=== PATIENT | male | born 1945 | race Caucasian/White ===

== ENCOUNTER 2018-05-22 18:58 | Inpatient (IN) ==
[2018-05-22 20:00] LABS: Basophils % 0.4 % (0.0-0.8); Eosinophils # 0.4 10*3/uL (0.0-0.87); Hematocrit 20.9 VOL% (42.0-52.0); Hemoglobin 6.5 GM/DL (14.0-18.0); Immature Granulocytes % 0.5 %; Immature Granulocytes Absolute 0.04 #; Mean Corpuscular HGB Conc 31.1 GM/DL (32-36); Mean Corpuscular Hemoglobin 29 PG (27-34); Mean Corpuscular Volume 92.5 FL (87-102); Mean Platelet Volume 10.5 FL (9.6-12.0); Monocytes # 0.6 10*3/uL (0.11-0.8); Monocytes % 8.3 % (1.7-12.7); Neutrophils # 5.2 10*3/uL (1.4-7.4); Neutrophils % 70.8 % (38.7-73.9); Platelet Count 277 T/CUMM (130-400); Red Blood Count 2.26 MC/CUMM (3.8-5.5); Red Cell Distribution Width 13.8 % (9.3-17.3); White Blood Count 7.4 T/CUMM (4-12)
[2018-05-22 20:30] LABS: Apearance,Urine CLEAR (Clear); Bilirubin,Urine Negative (Negative); Blood, Urine Negative (Negative); Glucose,Urine (UA) 50 mg/dL (Negative); Ketones,Urine Negative (Negative); Mucus,Urine Occasional /LPF (Occasional); Nitrite,Urine Negative (Negative); Protein,Urine 100 MG/DL; RBC,Urine <1 /HPF (0-4); Urine Color Straw (Yellow); Urine Urobilinogen < 2.0 EU/DL (0.2-1.0); WBC,Urine <1 /HPF (0-6)
[2018-05-22 21:18] LABS: Alanine Aminotransferase 31 U/L (16-61); Albumin 2.5 G/DL (3.4-5.0); Alkaline Phosphatase 89 U/L (45-117); Aspartate Amino Transferase 38 U/L (0-37); Bilirubin,Total < 0.39 MG/DL (0.2-1.0); Blood Urea Nitrogen 52 MG/DL (7-18); Calcium 7.8 MG/DL (8.5-10.1); Glucose 138 MG/DL (74-106); Osmolality,Calculated 292.5 MOS/KG (273-304); Potassium 4.1 MMOL/L (3.5-5.1); Sodium 139 MMOL/L (136-145); Total Protein 7.6 G/DL (6.4-8.3)
[2018-05-22] MEDS ORDERED: hydrALAZINE 20 MG/1 ML VIAL IV STA (23:24)
[2018-05-23] MEDS ORDERED: GLUCAGON 1 MG VIAL IM PRN (01:38)
[2018-05-23] MEDS ORDERED: SODIUM CHLORIDE 0.9% 1,000 ML IV SCH (01:38)
[2018-05-23] MEDS ORDERED: ACETAMINOPHEN 325 MG/10.15 ML UDCUP PO PRN (01:38)
[2018-05-23] MEDS ORDERED: DEXTROSE 50% 25 GM/50 ML VIAL IV PRN (01:38)
[2018-05-23] MEDS ORDERED: SODIUM CHLORIDE 0.9% 1,000 ML IV PRN ×4 (01:38→09:03)
[2018-05-23] MEDS: PANTOPRAZOLE 40 MG VIAL IV SCH ×3 (01:59→21:09)
[2018-05-23 02:05] LABS: % Iron Saturation 5.6 % (18-50); Ferritin 10.9 ng/ml (26-388)
[2018-05-23] MEDS: INSULIN LISPRO 100 UNIT/ML SUBCUT SCH ×7 (02:55→23:51)
[2018-05-23 03:18] LABS: Basophils % 0.3 % (0.0-0.8); Eosinophils # 0.6 10*3/uL (0.0-0.87); Eosinophils % 6.3 % (0.00-10.9); Hematocrit 21.1 VOL% (42.0-52.0); Hemoglobin 6.5 GM/DL (14.0-18.0); Immature Granulocytes % 0.4 %; Immature Granulocytes Absolute 0.04 #; Lymphocytes # 1.6 10*3/uL (1.4-4.0); Lymphocytes % 17.2 % (21.2-54.2); Mean Corpuscular HGB Conc 30.8 GM/DL (32-36); Mean Corpuscular Hemoglobin 29 PG (27-34); Mean Corpuscular Volume 92.5 FL (87-102); Mean Platelet Volume 11.1 FL (9.6-12.0); Monocytes # 0.9 10*3/uL (0.11-0.8); Monocytes % 10.2 % (1.7-12.7); Neutrophils % 65.6 % (38.7-73.9); Platelet Count 297 T/CUMM (130-400); Red Blood Count 2.28 MC/CUMM (3.8-5.5); Red Cell Distribution Width 13.6 % (9.3-17.3); White Blood Count 9.2 T/CUMM (4-12)
[2018-05-23 03:21] LABS: Calcium 7.9 MG/DL (8.5-10.1); Osmolality,Calculated 294.5 MOS/KG (273-304); Potassium 3.8 MMOL/L (3.5-5.1); Risk Ratio 3.71; VLDL CHOLESTEROL 35.4 MG/DL
[2018-05-23 03:49] LABS: INR 1.1; PT Patient Result 11.8 SECS; Partial Thromboplastin Time 25.9 SECS (0-40)
[2018-05-23] MEDS: ACETAMINOPHEN 500 MG TABLET PO PRN ×2 (06:13→18:12)
[2018-05-23 08:18] LABS: Hematocrit 20.6 VOL% (42.0-52.0)
[2018-05-23 08:20] LABS: Hemoglobin 6.4 GM/DL (14.0-18.0)
[2018-05-23] MEDS ORDERED: FUROSEMIDE 40 MG/4 ML VIAL IV ONE (08:29)
[2018-05-23 09:18] LABS: Basophils % 0.3 % (0.0-0.8); Eosinophils # 0.5 10*3/uL (0.0-0.87); Eosinophils % 6.7 % (0.00-10.9); Hematocrit 20.6 VOL% (42.0-52.0); Immature Granulocytes % 0.3 %; Immature Granulocytes Absolute 0.02 #; Lymphocytes # 0.9 10*3/uL (1.4-4.0); Lymphocytes % 13.8 % (21.2-54.2); Mean Corpuscular HGB Conc 31.1 GM/DL (32-36); Mean Corpuscular Hemoglobin 28 PG (27-34); Mean Platelet Volume 10.4 FL (9.6-12.0); Monocytes # 0.6 10*3/uL (0.11-0.8); Monocytes % 8.5 % (1.7-12.7); Neutrophils # 4.7 10*3/uL (1.4-7.4); Neutrophils % 70.4 % (38.7-73.9); Platelet Count 241 T/CUMM (130-400); Red Blood Count 2.29 MC/CUMM (3.8-5.5); Red Cell Distribution Width 17.3 % (9.3-17.3); White Blood Count 6.7 T/CUMM (4-12)
[2018-05-23 09:44] LABS: Hemoglobin 6.4 GM/DL (14.0-18.0)
[2018-05-23 09:56] LABS: Folate 15.5 NG/ML (5.4-24.0); Vitamin B12 766 PG/ML (211-911)
[2018-05-23 09:58] LABS: Hypochromasia 2+; Microcytosis Slight; Platelet Estimate Adequate
[2018-05-23 10:33] LABS: Sedimentation Rate-Westergren 115 MM/HR (0-20)
[2018-05-23] MEDS: hydrALAZINE 25 MG TABLET PO PRN (14:04)
[2018-05-23] MEDS: FUROSEMIDE 20 MG TABLET PO SCH (15:38)
[2018-05-23] MEDS: GLIMEPIRIDE 4 MG TABLET PO SCH (18:13)
[2018-05-23 19:10] LABS: Hematocrit 31.1 VOL% (42.0-52.0)
[2018-05-23 19:12] LABS: Hemoglobin 9.9 GM/DL (14.0-18.0)
[2018-05-23 19:51] LABS: Basophils # 0.1 10*3/uL (0.0-0.2); Basophils % 0.7 % (0.0-0.8); Eosinophils # 0.5 10*3/uL (0.0-0.87); Eosinophils % 6.1 % (0.00-10.9); Immature Granulocytes % 0.4 %; Immature Granulocytes Absolute 0.03 #; Lymphocytes # 0.9 10*3/uL (1.4-4.0); Mean Corpuscular HGB Conc 31.9 GM/DL (32-36); Mean Corpuscular Hemoglobin 27 PG (27-34); Mean Corpuscular Volume 83.6 FL (87-102); Mean Platelet Volume 10.7 FL (9.6-12.0); Monocytes # 0.6 10*3/uL (0.11-0.8); Monocytes % 8.3 % (1.7-12.7); Neutrophils # 5.5 10*3/uL (1.4-7.4); Neutrophils % 72.5 % (38.7-73.9); Platelet Count 307 T/CUMM (130-400); Red Blood Count 3.71 MC/CUMM (3.8-5.5); Red Cell Distribution Width 20.6 % (9.3-17.3); White Blood Count 7.6 T/CUMM (4-12)
[2018-05-23 19:55] LABS: Hemoglobin 9.9 GM/DL (14.0-18.0)
[2018-05-23] MEDS: ATORVASTATIN 40 MG TABLET PO SCH (21:10)
[2018-05-23] MEDS: METOPROLOL TARTRATE 50 MG TABLET PO SCH (21:10)
[2018-05-23] MEDS: LOSARTAN 50 MG TABLET PO SCH (21:10)
[2018-05-24 01:00] LABS: Basophils % 0.4 % (0.0-0.8); Eosinophils # 0.6 10*3/uL (0.0-0.87); Eosinophils % 7.5 % (0.00-10.9); Hematocrit 25.5 VOL% (42.0-52.0); Hemoglobin 8.1 GM/DL (14.0-18.0); Immature Granulocytes % 0.3 %; Immature Granulocytes Absolute 0.02 #; Lymphocytes # 1.1 10*3/uL (1.4-4.0); Lymphocytes % 15.4 % (21.2-54.2); Mean Corpuscular HGB Conc 31.8 GM/DL (32-36); Mean Corpuscular Hemoglobin 26 PG (27-34); Mean Corpuscular Volume 83.1 FL (87-102); Mean Platelet Volume 10.3 FL (9.6-12.0); Monocytes # 0.7 10*3/uL (0.11-0.8); Monocytes % 9.7 % (1.7-12.7); Neutrophils # 4.9 10*3/uL (1.4-7.4); Neutrophils % 66.7 % (38.7-73.9); Platelet Count 223 T/CUMM (130-400); Red Blood Count 3.07 MC/CUMM (3.8-5.5); Red Cell Distribution Width 20.8 % (9.3-17.3); White Blood Count 7.3 T/CUMM (4-12)
[2018-05-24 01:18] LABS: Calcium 7.7 MG/DL (8.5-10.1); Osmolality,Calculated 288.4 MOS/KG (273-304); Potassium 3.5 MMOL/L (3.5-5.1)
[2018-05-24] MEDS: INSULIN LISPRO 100 UNIT/ML SUBCUT SCH ×5 (02:03→17:13)
[2018-05-24 05:52] LABS: Hemoglobin 7.9 GM/DL (14.0-18.0)
[2018-05-24] MEDS: hydrALAZINE 25 MG TABLET PO PRN (07:02)
[2018-05-24] MEDS: LEVOTHYROXINE 75 MCG TABLET PO SCH (07:02)
[2018-05-24] MEDS ORDERED: MAGNESIUM SULF RIDER 4 GM in PREMIX 1 EACH IV ONE (07:20)
[2018-05-24] MEDS: GLIMEPIRIDE 4 MG TABLET PO SCH (08:20)
[2018-05-24] MEDS: FUROSEMIDE 20 MG TABLET PO SCH ×2 (08:20→17:13)
[2018-05-24] MEDS: METOPROLOL TARTRATE 50 MG TABLET PO SCH ×2 (08:21→20:50)
[2018-05-24] MEDS: LOSARTAN 50 MG TABLET PO SCH ×2 (08:21→20:50)
[2018-05-24] MEDS: PANTOPRAZOLE 40 MG VIAL IV SCH ×2 (08:22→20:50)
[2018-05-24 12:52] LABS: Hematocrit 27.4 VOL% (42.0-52.0); Hemoglobin 8.7 GM/DL (14.0-18.0)
[2018-05-24] MEDS: ATORVASTATIN 40 MG TABLET PO SCH (20:49)
[2018-05-25] MEDS: INSULIN LISPRO 100 UNIT/ML SUBCUT SCH ×4 (01:05→18:40)
[2018-05-25 06:15] LABS: Basophils % 0.4 % (0.0-0.8); Eosinophils # 0.6 10*3/uL (0.0-0.87); Eosinophils % 8.5 % (0.00-10.9); Hematocrit 25.8 VOL% (42.0-52.0); Hemoglobin 8.2 GM/DL (14.0-18.0); Immature Granulocytes % 0.3 %; Immature Granulocytes Absolute 0.02 #; Lymphocytes # 0.9 10*3/uL (1.4-4.0); Lymphocytes % 12.4 % (21.2-54.2); Mean Corpuscular HGB Conc 31.8 GM/DL (32-36); Mean Corpuscular Hemoglobin 27 PG (27-34); Mean Platelet Volume 10.6 FL (9.6-12.0); Monocytes # 0.8 10*3/uL (0.11-0.8); Monocytes % 11.7 % (1.7-12.7); Neutrophils # 4.8 10*3/uL (1.4-7.4); Neutrophils % 66.7 % (38.7-73.9); Platelet Count 246 T/CUMM (130-400); Red Blood Count 3.07 MC/CUMM (3.8-5.5); Red Cell Distribution Width 20.3 % (9.3-17.3); White Blood Count 7.2 T/CUMM (4-12)
[2018-05-25] MEDS: LEVOTHYROXINE 75 MCG TABLET PO SCH (06:16)
[2018-05-25 06:35] LABS: Albumin 2.3 G/DL (3.4-5.0); Bilirubin,Total 0.8 MG/DL (0.2-1.0); Osmolality,Calculated 282.5 MOS/KG (273-304); Potassium 3.4 MMOL/L (3.5-5.1); Total Protein 6.6 G/DL (6.4-8.3)
[2018-05-25] MEDS: PANTOPRAZOLE 40 MG VIAL IV SCH ×2 (08:22→21:16)
[2018-05-25] MEDS: FUROSEMIDE 20 MG TABLET PO SCH ×2 (08:43→15:56)
[2018-05-25] MEDS ORDERED: LIDOCAINE 2% 5 ML VIAL ONE (10:06)
[2018-05-25] MEDS ORDERED: ETOMIDATE 20 MG/10 ML VIAL IV ONE (10:06)
[2018-05-25] MEDS ORDERED: PROPOFOL 200 MG/20 ML VIAL IV ONE (10:06)
[2018-05-25] MEDS: hydroCHLOROthiazide 25 MG TABLET PO SCH (11:30)
[2018-05-25] MEDS: ACETAMINOPHEN 500 MG TABLET PO PRN (11:31)
[2018-05-25] MEDS: METOPROLOL TARTRATE 50 MG TABLET PO SCH ×2 (11:33→21:15)
[2018-05-25] MEDS: LOSARTAN 50 MG TABLET PO SCH ×2 (11:33→21:15)
[2018-05-25 12:10] LABS: Albumin (SPE) 3.1 G/DL (3.2-5.3); Albumin (SPE) Rel % 41.6 %; Alpha 1 (SPE) 0.2 G/DL (0.1-0.4); Total Protein (Chem) 7.5 G/DL (6.4-8.3)
[2018-05-25 12:11] LABS: Alpha 1 (SPE) Rel % 2.9 %; Alpha 2 (SPE) 1.4 G/DL (0.4-1.0); Alpha 2 (SPE) Rel % 18.6 %; Beta (SPE) Rel % 13.8 %; Gamma (SPE) 1.7 G/DL (0.7-1.7); Gamma (SPE) Rel % 23.1 %
[2018-05-25 12:14] LABS: Hemoglobin A1 (Alkaline) 97.6 % (96.5-98.5); Hemoglobin A2 (Alkaline) 2.4 % (1.5-3.5)
[2018-05-25] MEDS: POTASSIUM CHLORIDE 20 MEQ TABLET PO SCH ×3 (13:16→21:15)
[2018-05-25] MEDS ORDERED: diphenhydrAMINE CAP 25 MG CAPSULE PO ONE (14:47)
[2018-05-25] MEDS ORDERED: SODIUM CHLORIDE 0.9% 1,000 ML IV PRN (17:06)
[2018-05-25] MEDS: ATORVASTATIN 40 MG TABLET PO SCH (21:15)
[2018-05-26] MEDS: INSULIN LISPRO 100 UNIT/ML SUBCUT SCH ×2 (00:04→05:36)
[2018-05-26 05:14] LABS: Basophils % 0.1 % (0.0-0.8); Eosinophils # 0.6 10*3/uL (0.0-0.87); Eosinophils % 8.7 % (0.00-10.9); Hematocrit 29.3 VOL% (42.0-52.0); Hemoglobin 9.1 GM/DL (14.0-18.0); Immature Granulocytes % 0.4 %; Immature Granulocytes Absolute 0.03 #; Mean Corpuscular HGB Conc 31.1 GM/DL (32-36); Mean Corpuscular Hemoglobin 27 PG (27-34); Mean Corpuscular Volume 85.9 FL (87-102); Mean Platelet Volume 10.4 FL (9.6-12.0); Neutrophils # 4.2 10*3/uL (1.4-7.4); Neutrophils % 61.8 % (38.7-73.9); Platelet Count 210 T/CUMM (130-400); Red Blood Count 3.41 MC/CUMM (3.8-5.5); Red Cell Distribution Width 19.2 % (9.3-17.3); White Blood Count 6.8 T/CUMM (4-12)
[2018-05-26 05:28] LABS: Calcium 7.9 MG/DL (8.5-10.1); Osmolality,Calculated 285.5 MOS/KG (273-304); Potassium 4.3 MMOL/L (3.5-5.1)
[2018-05-26] MEDS: LEVOTHYROXINE 75 MCG TABLET PO SCH (05:49)
[2018-05-26 08:29] LABS: Red Blood Count 2.29 MC/CUMM (3.8-5.5); White Blood Count 6.7 T/CUMM (4-12)
[2018-05-26 08:30] LABS: Hematocrit 20.6 VOL% (42.0-52.0); Hemoglobin 6.4 GM/DL (14.0-18.0)
[2018-05-26 08:31] LABS: Basophils % 0.3 % (0.0-0.8); Eosinophils % 6.7 % (0.00-10.9); Immature Granulocytes % 0.3 %; Lymphocytes # 0.9 10*3/uL (1.4-4.0); Lymphocytes % 13.8 % (21.2-54.2); Mean Corpuscular HGB Conc 31.1 GM/DL (32-36); Mean Corpuscular Hemoglobin 28 PG (27-34); Mean Platelet Volume 10.4 FL (9.6-12.0); Monocytes % 8.5 % (1.7-12.7); Neutrophils # 4.7 10*3/uL (1.4-7.4); Neutrophils % 70.4 % (38.7-73.9); Platelet Count 241 T/CUMM (130-400); Red Cell Distribution Width 17.3 % (9.3-17.3)
[2018-05-26 08:32] LABS: Eosinophils # 0.5 10*3/uL (0.0-0.87); Hypochromasia 2+; Immature Granulocytes Absolute 0.02 #; Microcytosis Slight; Monocytes # 0.6 10*3/uL (0.11-0.8)
[2018-05-26 08:33] LABS: Platelet Estimate Adequate
[2018-05-26] MEDS: hydroCHLOROthiazide 25 MG TABLET PO SCH (09:14)
[2018-05-26] MEDS: FUROSEMIDE 20 MG TABLET PO SCH (09:14)
[2018-05-26] MEDS: LOSARTAN 50 MG TABLET PO SCH (09:14)
[2018-05-26] MEDS: PANTOPRAZOLE 40 MG VIAL IV SCH (09:15)
[2018-05-26] MEDS: METOPROLOL TARTRATE 50 MG TABLET PO SCH (09:15)
[2018-05-26 09:45] VITALS: BP 170/87
== END 2018-05-26 12:03 | disposition home or self-care (01) | DRG 378 ==
LOC: N.ED 18:58 → N.EDINP 23:09 → SUATTDRO 23:09 → N.5E 05-23 01:06
PROVIDERS: ADMIT Internal Medicine; ATTEND Family Medicine

== ENCOUNTER 2018-08-10 19:03 | Inpatient (IN) ==
[2018-08-10 20:17] LABS: Basophils % 0.2 % (0.0-0.8); Eosinophils # 0.4 10*3/uL (0.0-0.87); Eosinophils % 6.5 % (0.00-10.9); Hematocrit 19.7 VOL% (42.0-52.0); Immature Granulocytes % 0.7 %; Immature Granulocytes Absolute 0.04 #; Lymphocytes # 0.9 10*3/uL (1.4-4.0); Lymphocytes % 14.5 % (21.2-54.2); Mean Corpuscular HGB Conc 30.5 GM/DL (32-36); Mean Corpuscular Volume 103.1 FL (87-102); Mean Platelet Volume 10.4 FL (9.6-12.0); Monocytes % 9.7 % (1.7-12.7); Neutrophils % 68.4 % (38.7-73.9); Platelet Count 238 T/CUMM (130-400); Red Blood Count 1.91 MC/CUMM (3.8-5.5)
[2018-08-10 20:24] LABS: Alanine Aminotransferase 37 U/L (16-61); Albumin 2.6 G/DL (3.4-5.0); Alkaline Phosphatase 75 U/L (45-117); Aspartate Amino Transferase 38 U/L (0-37); Bilirubin,Total < 0.39 MG/DL (0.2-1.0); Blood Urea Nitrogen 56 MG/DL (7-18); Calcium 8.2 MG/DL (8.5-10.1); Glucose 146 MG/DL (74-106); Osmolality,Calculated 293.7 MOS/KG (273-304); Total Protein 6.8 G/DL (6.4-8.3)
[2018-08-10] MEDS ORDERED: PANTOPRAZOLE 40 MG VIAL IV STA (20:56)
[2018-08-10] MEDS ORDERED: ONDANSETRON 4 MG/2 ML VIAL IV STA (20:56)
[2018-08-10] MEDS ORDERED: DEXTROSE 50% 25 GM/50 ML VIAL IV PRN (21:34)
[2018-08-10] MEDS ORDERED: GLUCAGON 1 MG VIAL IM PRN (21:34)
[2018-08-10] MEDS ORDERED: SODIUM CHLORIDE 0.9% 1,000 ML IV PRN (21:35)
[2018-08-10 21:59] LABS: Apearance,Urine Slightly Hazy (Clear); Bilirubin,Urine Negative (Negative); Blood, Urine Negative (Negative); Glucose,Urine (UA) 50 mg/dL (Negative); Hyaline Casts,Urine 1 /LPF (0-3); Ketones,Urine Negative (Negative); Mucus,Urine Occasional /LPF (Occasional); Nitrite,Urine Negative (Negative); Protein,Urine 100 MG/DL; Urine Color Yellow (Yellow); Urine Specific Gravity 1.013 (1.001-1.035); Urine Urobilinogen < 2.0 EU/DL (0.2-1.0); WBC,Urine 1 /HPF (0-6)
[2018-08-11] MEDS: INSULIN LISPRO 100 UNIT/ML SUBCUT SCH ×4 (01:54→17:58)
[2018-08-11] MEDS: SODIUM CHLORIDE 0.9% 1,000 ML IV SCH ×3 (03:30→13:17)
[2018-08-11 05:43] LABS: Basophils % 0.2 % (0.0-0.8); Eosinophils # 0.4 10*3/uL (0.0-0.87); Eosinophils % 8.3 % (0.00-10.9); Hematocrit 19.2 VOL% (42.0-52.0); Immature Granulocytes % 0.8 %; Immature Granulocytes Absolute 0.04 #; Lymphocytes # 1.1 10*3/uL (1.4-4.0); Mean Corpuscular HGB Conc 30.7 GM/DL (32-36); Mean Platelet Volume 10.3 FL (9.6-12.0); Monocytes % 11.2 % (1.7-12.7); Neutrophils % 58.5 % (38.7-73.9); Platelet Count 170 T/CUMM (130-400); Red Blood Count 1.94 MC/CUMM (3.8-5.5); Red Cell Distribution Width 21.8 % (9.3-17.3); White Blood Count 5.3 T/CUMM (4-12)
[2018-08-11 05:44] LABS: Hemoglobin 5.9 GM/DL (14.0-18.0)
[2018-08-11 05:57] LABS: Calcium 8.1 MG/DL (8.5-10.1)
[2018-08-11] MEDS ORDERED: SODIUM CHLORIDE 0.9% 1,000 ML IV PRN ×2 (07:38→16:29)
[2018-08-11 08:17] LABS: Eosinophils # 0.5 10*3/uL (0.0-0.87); Immature Granulocytes % 0.6 %; Immature Granulocytes Absolute 0.03 #; Lymphocytes % 18.6 % (21.2-54.2); Mean Corpuscular HGB Conc 30.5 GM/DL (32-36); Mean Platelet Volume 10.2 FL (9.6-12.0); Monocytes % 10.4 % (1.7-12.7); Neutrophils % 61.4 % (38.7-73.9); Platelet Count 170 T/CUMM (130-400); Red Blood Count 2.02 MC/CUMM (3.8-5.5); Red Cell Distribution Width 22.2 % (9.3-17.3); White Blood Count 5.1 T/CUMM (4-12)
[2018-08-11 08:20] LABS: Hemoglobin 6.1 GM/DL (14.0-18.0)
[2018-08-11] MEDS: LOSARTAN 50 MG TABLET PO SCH ×2 (08:32→20:45)
[2018-08-11] MEDS: PANTOPRAZOLE 40 MG VIAL IV SCH ×2 (08:33→20:34)
[2018-08-11 08:39] LABS: Hypochromasia 1+; Ovalocytes Slight; Platelet Estimate Adequate
[2018-08-11] MEDS ORDERED: PROPOFOL 200 MG/20 ML VIAL IV ONE (10:00)
[2018-08-11] MEDS ORDERED: LIDOCAINE 100 MG/5 ML SYRINGE ONE (10:00)
[2018-08-11] MEDS ORDERED: MAGNESIUM SULF RIDER 2 GM in PREMIX 1 EACH IV ONE (10:44)
[2018-08-11] MEDS: LACTATED RINGERS 500 ML IV SCH (11:53)
[2018-08-11] MEDS: TRIAMCINOLONE 0.1% CREAM 15 GM TUBE TOP SCH ×2 (16:50→20:54)
[2018-08-11] MEDS: SUCRALFATE 1 GM TABLET PO SCH ×2 (16:50→20:35)
[2018-08-11 19:45] LABS: Hematocrit 27.1 VOL% (42.0-52.0)
[2018-08-11 19:52] LABS: Hemoglobin 8.5 GM/DL (14.0-18.0)
[2018-08-11] MEDS: ATORVASTATIN 40 MG TABLET PO SCH (20:46)
[2018-08-11] MEDS: ONDANSETRON 4 MG/2 ML VIAL IV PRN (21:43)
[2018-08-11] MEDS ORDERED: hydrALAZINE 20 MG/1 ML VIAL IV ONE (22:06)
[2018-08-11] MEDS ORDERED: MORPHINE 4 MG/1 ML VIAL IV ONE (22:07)
[2018-08-11 22:44] LABS: Basophils % 0.4 % (0.0-0.8); Eosinophils # 0.5 10*3/uL (0.0-0.87); Eosinophils % 7.3 % (0.00-10.9); Hematocrit 28.6 VOL% (42.0-52.0); Immature Granulocytes % 0.4 %; Immature Granulocytes Absolute 0.03 #; Lymphocytes # 0.8 10*3/uL (1.4-4.0); Lymphocytes % 10.7 % (21.2-54.2); Mean Corpuscular HGB Conc 31.5 GM/DL (32-36); Mean Corpuscular Volume 94.1 FL (87-102); Mean Platelet Volume 10.1 FL (9.6-12.0); Monocytes % 11.3 % (1.7-12.7); Neutrophils % 69.9 % (38.7-73.9); Platelet Count 173 T/CUMM (130-400); Red Blood Count 3.04 MC/CUMM (3.8-5.5); Red Cell Distribution Width 20.9 % (9.3-17.3); White Blood Count 7.1 T/CUMM (4-12)
[2018-08-11] MEDS: sitaGLIPtin 25 MG TABLET PO SCH (23:28)
[2018-08-12 00:34] LABS: Hematocrit 30.3 VOL% (42.0-52.0); Hemoglobin 9.7 GM/DL (14.0-18.0)
[2018-08-12] MEDS: MELATONIN 3 MG TABLET PO PRN ×2 (00:55→21:10)
[2018-08-12] MEDS: INSULIN LISPRO 100 UNIT/ML SUBCUT SCH ×5 (01:00→23:43)
[2018-08-12 05:27] LABS: Basophils % 0.3 % (0.0-0.8); Eosinophils # 0.3 10*3/uL (0.0-0.87); Eosinophils % 2.8 % (0.00-10.9); Hematocrit 29.8 VOL% (42.0-52.0); Hemoglobin 9.3 GM/DL (14.0-18.0); Immature Granulocytes % 0.6 %; Immature Granulocytes Absolute 0.05 #; Lymphocytes # 0.6 10*3/uL (1.4-4.0); Lymphocytes % 6.3 % (21.2-54.2); Mean Corpuscular HGB Conc 31.2 GM/DL (32-36); Mean Corpuscular Volume 93.7 FL (87-102); Mean Platelet Volume 10.1 FL (9.6-12.0); Monocytes % 7.2 % (1.7-12.7); Neutrophils % 82.8 % (38.7-73.9); Platelet Count 196 T/CUMM (130-400); Red Blood Count 3.18 MC/CUMM (3.8-5.5); Red Cell Distribution Width 20.9 % (9.3-17.3); White Blood Count 8.9 T/CUMM (4-12)
[2018-08-12 05:28] LABS: Calcium 8.5 MG/DL (8.5-10.1); Osmolality,Calculated 287.5 MOS/KG (273-304)
[2018-08-12] MEDS: LEVOTHYROXINE 75 MCG TABLET PO SCH (05:46)
[2018-08-12 06:53] LABS: Hematocrit 27.6 VOL% (42.0-52.0); Hemoglobin 8.8 GM/DL (14.0-18.0)
[2018-08-12] MEDS: ONDANSETRON 4 MG/2 ML VIAL IV PRN ×2 (06:56→21:16)
[2018-08-12] MEDS: LOSARTAN 50 MG TABLET PO SCH ×2 (08:19→21:09)
[2018-08-12] MEDS: SUCRALFATE 1 GM TABLET PO SCH ×4 (08:19→21:09)
[2018-08-12] MEDS: PANTOPRAZOLE 40 MG VIAL IV SCH ×2 (08:19→21:10)
[2018-08-12] MEDS: ACETAMINOPHEN 325 MG TABLET PO PRN ×3 (08:19→21:13)
[2018-08-12] MEDS: TRIAMCINOLONE 0.1% CREAM 15 GM TUBE TOP SCH ×2 (08:19→21:26)
[2018-08-12 09:33] LABS: Total Protein 6.1 G/DL (6.4-8.3)
[2018-08-12] MEDS: LACTATED RINGERS 500 ML IV SCH (10:29)
[2018-08-12 11:06] LABS: Immuno Free Light Chain Kappa 25.28 MG/DL (0.33-1.94); Immuno Free Light Chain Lambda 7.47 MG/DL (0.57-2.63); Immuno Free Light Chain Ratio 3.38 MG/DL (0.26-1.65)
[2018-08-12 11:07] LABS: Immuno Free Light Chain Kappa 13.75 MG/DL (0.33-1.94); Immuno Free Light Chain Lambda 6.96 MG/DL (0.57-2.63); Immuno Free Light Chain Ratio 1.98 MG/DL (0.26-1.65)
[2018-08-12 13:18] LABS: Hematocrit 28.9 VOL% (42.0-52.0)
[2018-08-12] MEDS: SODIUM CHLORIDE 0.9% 1,000 ML IV SCH (13:26)
[2018-08-12] MEDS ORDERED: IRON SUCROSE 200 MG in SODIUM CHLORIDE 0.9% 100 ML IV ONE (15:40)
[2018-08-12 19:33] LABS: Hematocrit 28.7 VOL% (42.0-52.0); Hemoglobin 8.9 GM/DL (14.0-18.0)
[2018-08-12] MEDS: ATORVASTATIN 40 MG TABLET PO SCH (21:09)
[2018-08-12] MEDS: FUROSEMIDE 20 MG TABLET PO SCH (21:09)
[2018-08-12] MEDS: sitaGLIPtin 25 MG TABLET PO SCH (21:09)
[2018-08-13] MEDS ORDERED: MORPHINE 4 MG/1 ML VIAL ONE (01:01)
[2018-08-13] MEDS ORDERED: NITROGLYCERIN SL 0.4 MG TABLET SL ONE (01:01)
[2018-08-13 03:47] LABS: Basophils % 0.1 % (0.0-0.8); Eosinophils # 0.3 10*3/uL (0.0-0.87); Eosinophils % 3.7 % (0.00-10.9); Hematocrit 27.5 VOL% (42.0-52.0); Hemoglobin 8.5 GM/DL (14.0-18.0); Immature Granulocytes % 0.2 %; Immature Granulocytes Absolute 0.02 #; Lymphocytes # 0.5 10*3/uL (1.4-4.0); Lymphocytes % 6.7 % (21.2-54.2); Mean Corpuscular HGB Conc 30.9 GM/DL (32-36); Mean Corpuscular Volume 95.5 FL (87-102); Mean Platelet Volume 10.5 FL (9.6-12.0); Monocytes % 9.7 % (1.7-12.7); Neutrophils % 79.6 % (38.7-73.9); Platelet Count 190 T/CUMM (130-400); Red Blood Count 2.88 MC/CUMM (3.8-5.5); Red Cell Distribution Width 20.8 % (9.3-17.3); White Blood Count 8.1 T/CUMM (4-12)
[2018-08-13 04:03] LABS: Osmolality,Calculated 292.4 MOS/KG (273-304)
[2018-08-13 05:21] LABS: Hemoglobin 7.8 GM/DL (14.0-18.0)
[2018-08-13] MEDS: INSULIN LISPRO 100 UNIT/ML SUBCUT SCH ×2 (05:26→12:28)
[2018-08-13] MEDS: SODIUM CHLORIDE 0.9% 1,000 ML IV SCH (05:36)
[2018-08-13 05:56] LABS: Immunoglobulin A (Chem) 341 MG/DL (70-400); Immunoglobulin G (Chem) 1490 MG/DL (700-1600); Immunoglobulin M (Chem) 96 MG/DL (40-230); Total Protein (Chem) 6.1 G/DL (6.4-8.3)
[2018-08-13] MEDS: LEVOTHYROXINE 75 MCG TABLET PO SCH (06:37)
[2018-08-13] MEDS: SUCRALFATE 1 GM TABLET PO SCH ×2 (06:37→12:28)
[2018-08-13] MEDS: ACETAMINOPHEN 325 MG TABLET PO PRN (06:39)
[2018-08-13 07:44] LABS: Albumin (SPE) 3.1 G/DL (3.2-5.3); Albumin (SPE) Rel % 51.6 %; Alpha 1 (SPE) 0.1 G/DL (0.1-0.4); Alpha 1 (SPE) Rel % 2.1 %; Alpha 2 (SPE) 0.8 G/DL (0.4-1.0); Alpha 2 (SPE) Rel % 13.5 %; Beta (SPE) 0.8 G/DL (0.5-1.1); Beta (SPE) Rel % 12.4 %; Gamma (SPE) 1.2 G/DL (0.7-1.7); Gamma (SPE) Rel % 20.4 %
[2018-08-13] MEDS ORDERED: MAGNESIUM SULF RIDER 2 GM in PREMIX 1 EACH IV ONE (07:49)
[2018-08-13] MEDS ORDERED: IRON SUCROSE 200 MG in SODIUM CHLORIDE 0.9% 100 ML IV ONE (07:50)
[2018-08-13] MEDS: FUROSEMIDE 20 MG TABLET PO SCH (09:22)
[2018-08-13] MEDS: TRIAMCINOLONE 0.1% CREAM 15 GM TUBE TOP SCH (09:22)
[2018-08-13] MEDS: PANTOPRAZOLE 40 MG VIAL IV SCH (09:22)
[2018-08-13] MEDS: LOSARTAN 50 MG TABLET PO SCH (09:22)
[2018-08-13 09:59] LABS: Hematocrit 27.1 VOL% (42.0-52.0); Hemoglobin 8.4 GM/DL (14.0-18.0)
[2018-08-13 12:28] VITALS: BP 157/72
== END 2018-08-13 14:19 | disposition home or self-care (01) | DRG 378 ==
LOC: N.ED 19:03 → N.EDINP 21:27 → N.5E 22:28
PROVIDERS: ADMIT Internal Medicine; ATTEND Internal Medicine